=== PATIENT | female | born 1975 | race Caucasian/White ===

== ENCOUNTER 2019-01-25 22:38 | Emergency (ER) | payer BC ==
--- NOTE | 2019-01-25 23:37 | EDM.PDOC ---
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 Pt could barely talk about her losses. Was on Celexa from PCP Lala Cage 13m ago, made her tired, stopped 2m ago, changed to Buspar 10 mg BID but then had nightmares. Pt decided she would rather be tired and resumed taking the Celexa one week, says is sleeping better in the past week. She has had nightmares that include killing someone that she does not now, had a nightmare re a watch tower standing in her front yard that has people on that frighten here. She thought she saw a tower tonight even though she wasn't sleeping and thinks she is having a hallucination. 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 History: Psychiatric History: Reports: Anxiety - Past Surgical History GI Surgical History: Reports: Appendectomy Female Surgical History: Reports: Tubal Ligation Social & Family History - Tobacco Use Smoking Status *Q: Current Every Day Smoker Years of Tobacco use: 20 Packs/Tins Daily: 0.5 - Caffeine Use Caffeine Use: Reports: None - Alcohol Use Days Per Week of Alcohol Use: 7 Number of Drinks Per Day: 4 Total Drinks Per Week: 28 Date of Last Drink: 01/25/19 Time of Last Drink: 22:30 - Recreational Drug Use Recreational Drug Use: No ED ROS GENERAL - Review of Systems Review Of Systems: See Below Constitutional: Reports: Fatigue HEENT: Reports: No Symptoms Respiratory: Reports: No Symptoms Cardiovascular: Reports: No Symptoms Endocrine: Reports: No Symptoms GI/Abdominal: Reports: No Symptoms : Reports: No Symptoms Musculoskeletal: Reports: No Symptoms Skin: Reports: No Symptoms Neurological: Reports: No Symptoms Psychiatric: Reports: Anxiety, Mood Lability Hematologic/Lymphatic: Reports: No Symptoms Immunologic: Reports: No Symptoms ED EXAM, GENERAL - Physical Exam Exam: See Below Exam Limited By: No Limitations General Appearance: Alert, WD/WN, No Apparent Distress Eye Exam: Bilateral Eye: EOMI, PERRL Ears: Hearing Grossly Normal Nose: Normal Inspection, Normal Mucosa, No Blood Throat/Mouth: Normal Inspection, Normal Lips, Normal Teeth, Normal Gums, Normal Oropharynx, Normal Voice, No Airway Compromise Head: Atraumatic, Normocephalic Neck: Normal Inspection, Supple, Non-Tender, Full Range of Motion. No: Lymphadenopathy (R), Lymphadenopathy (L) Respiratory/Chest: No Respiratory Distress, Lungs Clear, Normal Breath Sounds, No Accessory Muscle Use, Chest Non-Tender Cardiovascular: Regular Rate, Rhythm, No Edema, No Gallop, No JVD, No Murmur, No Rub GI/Abdominal: Soft, Non-Tender, No Distention Back Exam: Normal Inspection Extremities: Normal Inspection, Normal Range of Motion, Non-Tender, No Pedal Edema Neurological: Alert, Oriented, CN II-XII Intact, No Motor/Sensory Deficits Psychiatric: Other (anxious, guarded, no SI/HI, limited insight, tearful at times) Skin Exam: Warm, Dry, Intact, Normal Color, No Rash Lymphatic: No Adenopathy Course - Vital Signs Last Recorded V/S: Last Vital Signs Temp 36.2 C 01/25/19 22:50 Pulse 65 01/26/19 00:10 Resp 16 01/26/19 00:10 BP 107/77 01/26/19 00:10 Pulse Ox 98 01/26/19 00:10 - Orders/Labs/Meds Orders: Active Orders 24 hr Category Date Time Status Head wo Cont [CT] Stat Exams 01/25/19 23:28 Taken ETHANOL BLOOD MEDICAL [CHEM] Stat Lab 01/26/19 00:51 Received FOLATE (FOLIC ACID), SERUM Stat Lab 01/26/19 00:51 Received THYROXINE (T4) FREE, DIRECT, S Stat Lab 01/26/19 00:51 Received VITAMIN B12 [CHEM] Stat Lab 01/26/19 00:51 Received Labs: Laboratory Tests 01/25/19 01/25/19 01/25/19 Range/Units 23:29 23:41 23:41 WBC 6.2 (4.5-12.0) X10-3/uL RBC 3.64 (3.23-5.20) x10(6)uL Hgb 13.1 (11.5-15.5) g/dL Hct 38.1 (30.0-51.3) % MCV 104.4 H (80-96) fL MCH 35.8 H (27.7-33.6) pg MCHC 34.3 (32.2-35.4) g/dL RDW 13.1 (11.5-15.5) % Plt Count 162 (125-369) X10(3)uL MPV 8.6 (7.4-10.4) fL Neut % (Auto) 50.3 (46-82) % Lymph % (Auto) 38.6 H (13-37) % [place] % (Auto) 9.0 (4-12) % Eos % (Auto) 1 (1.0-5.0) % Baso % (Auto) 1 (0-2) % Neut # (Auto) 3.0 (1.6-8.3) # Lymph # (Auto) 2.4 (0.6-5.0) # Sibley # (Auto) 0.6 (0.0-1.3) # Eos # (Auto) 0.1 (0.0-0.8) # Baso # (Auto) 0.1 (0.0-0.2) # Sodium 129 L (135-145) mmol/L Potassium 3.6 (3.5-5.3) mmol/L Chloride 90 L (100-110) mmol/L Carbon Dioxide 27 (21-32) mmol/L BUN 3 L (7-18) mg/dL Creatinine 0.6 (0.55-1.02) mg/dL Est Cr Clr Drug Dosing 115.14 mL/min Estimated GFR (MDRD) > 60 (>60) BUN/Creatinine Ratio 5.0 L (9-20) Glucose 92 (80-116) mg/dL Calcium 8.6 (8.6-10.2) mg/dL Total Bilirubin 0.3 (0.1-1.3) mg/dL AST 59 H (5-25) IU/L ALT 59 H (12-36) U/L Alkaline Phosphatase 69 (56-112) IU/L C-Reactive Protein (0.5-0.9) mg/dL Total Protein 7.0 (6.0-8.0) g/dL Albumin 3.5 (3.5-5.2) g/dL Globulin 3.5 g/dL Albumin/Globulin Ratio 1.0 TSH, Ultra Sensitive (0.36-3.74) IU/mL Urine Color Yellow (YELLOW) Urine Appearance Clear (CLEAR) Urine pH 6.0 (5.0-6.5) Ur Specific [place] 1.015 (1.010-1.025) Urine Protein Negative (NEGATIVE) mg/dL Urine Glucose (UA) Normal (NORMAL) mg/dL Urine Ketones Negative (NEGATIVE) mg/dL Urine Occult Blood Negative (NEGATIVE) Urine Nitrite Negative (NEGATIVE) Urine Bilirubin Negative (NEGATIVE) Urine Urobilinogen Normal (NEGATIVE) mg/dL Ur Leukocyte Esterase Negative (NEGATIVE) Urine RBC 0-5 (0-5) Urine WBC 0-5 (0-5) Ur Squamous Epith Cells Few H (NS,R,O) Urine Bacteria Few H (NS) Urine Mucus Few H (NS) 01/25/19 01/25/19 Range/Units 23:41 23:41 WBC (4.5-12.0) X10-3/uL RBC (3.23-5.20) x10(6)uL Hgb (11.5-15.5) g/dL Hct (30.0-51.3) % MCV (80-96) fL MCH (27.7-33.6) pg MCHC (32.2-35.4) g/dL RDW (11.5-15.5) % Plt Count (125-369) X10(3)uL MPV (7.4-10.4) fL Neut % (Auto) (46-82) % Lymph % (Auto) (13-37) % [place] % (Auto) (4-12) % Eos % (Auto) (1.0-5.0) % Baso % (Auto) (0-2) % Neut # (Auto) (1.6-8.3) # Lymph # (Auto) (0.6-5.0) # S[place]y # (Auto) (0.0-1.3) # Eos # (Auto) (0.0-0.8) # Baso # (Auto) (0.0-0.2) # Sodium (135-145) mmol/L Potassium (3.5-5.3) mmol/L Chloride (100-110) mmol/L Carbon Dioxide (21-32) mmol/L BUN (7-18) mg/dL Creatinine (0.55-1.02) mg/dL Est Cr Clr Drug Dosing mL/min Estimated GFR (MDRD) (>60) BUN/Creatinine Ratio (9-20) Glucose (80-116) mg/dL Calcium (8.6-10.2) mg/dL Total Bilirubin (0.1-1.3) mg/dL AST (5-25) IU/L ALT (12-36) U/L Alkaline Phosphatase (56-112) IU/L C-Reactive Protein < 0.2 L (0.5-0.9) mg/dL Total Protein (6.0-8.0) g/dL Albumin (3.5-5.2) g/dL Globulin g/dL Albumin/Globulin Ratio TSH, Ultra Sensitive 4.20 H (0.36-3.74) IU/mL Urine Color (YELLOW) Urine Appearance (CLEAR) Urine pH (5.0-6.5) Ur Specific [place] (1.010-1.025) Urine Protein (NEGATIVE) mg/dL Urine Glucose (UA) (NORMAL) mg/dL Urine Ketones (NEGATIVE) mg/dL Urine Occult Blood (NEGATIVE) Urine Nitrite (NEGATIVE) Urine Bilirubin (NEGATIVE) Urine Urobilinogen (NEGATIVE) mg/dL Ur Leukocyte Esterase (NEGATIVE) Urine RBC (0-5) Urine WBC (0-5) Ur Squamous Epith Cells (NS,R,O) Urine Bacteria (NS) Urine Mucus (NS) - Re-Assessments/Exams Free Text/Narrative Re-Assessment/Exam: 01/26/19 01:[address] neg, labs d/w as pt was sound asleep, agrees that she has an alcohol program, he is supportive of her entering an inpatient program altho states that she will not agree to do so will have pt f/u with PCP is aware that pt can contact an inpt program directly at any time to arrange an admission (in coordination with PCP) Departure - Departure Time of Disposition: 01:08 Disposition: Home, Self-Care 01 Condition: Fair Clinical Impression: Chronic anxiety, Agoraphobia, Grief reaction, Sleep disturbance, Nightmares, Alcohol abuse, Macrocytosis, Elevated liver function tests, Hyponatremia - Discharge Information *PRESCRIPTION DRUG MONITORING PROGRAM REVIEWED*: Not Applicable *COPY OF PRESCRIPTION DRUG MONITORING REPORT IN PATIENT LYLY: Not Applicable Instructions: Generalized Anxiety Disorder, Adult, Complicated Grieving, Alcohol Use Disorder Referrals: Lala Cage PA [Primary Care Provider] - Forms: ED Department Discharge Additional Instructions: You have a mood disorder (generalized anxiety disorder, agoraphobia, grief reaction) as well as a substance abuse disorder (alcoholism). Your blood work shows several manifestations of injury from alcohol: macrocytosis, hyponatremia, elevated liver enzymes consistent with alcoholic hepatitis, low blood urea nitrogen. As your body is not able to handle the stress it is under, you would do well to consider entering an inpatient treatment program such as [facility] or [facility]. Lala Cage can help arrange an admission. Several additional tests are pending, including a thiamine and vitamin B12 level , which often are low and can affect your thinking. Contact Lala today for her recommendations. Return to Emergency Department at any time if you are feeling worse. - My Orders Last 24 Hours: My Active Orders 01/25/19 23:28 Head wo Cont [CT] Stat 01/26/19 00:51 ETHANOL BLOOD MEDICAL [CHEM] Stat FOLATE (FOLIC ACID), SERUM Stat THYROXINE (T4) FREE, DIRECT, S Stat VITAMIN B12 [CHEM] Stat - Assessment/Plan Last 24 Hours: My Active Orders 01/25/19 23:28 Head wo Cont [CT] Stat 01/26/19 00:51 ETHANOL BLOOD MEDICAL [CHEM] Stat FOLATE (FOLIC ACID), SERUM Stat THYROXINE (T4) FREE, DIRECT, S Stat VITAMIN B12 [CHEM] Stat
== END 2019-01-26 01:28 | disposition home or self-care (01) ==
LOC: FB.ED 22:38
DX: F43.22 Adjustment disorder with anxiety (principal); F51.5 Nightmare disorder; E87.1 Hypo-osmolality and hyponatremia; F40.00 Agoraphobia, unspecified; F10.10 Alcohol abuse, uncomplicated; R79.89 Other specified abnormal findings of blood chemistry; D75.89 Other specified diseases of blood and blood-forming organs; K21.9 Gastro-esophageal reflux disease without esophagitis; Z90.49 Acquired absence of other specified parts of digestive tract; Z79.899 Other long term (current) drug therapy
CPT/HCPCS: 36415; 70450; 80053; 81001; 82607; 82746; 84439; 84443; 85025; 86140; 99285-25; G0480

== ENCOUNTER 2021-09-14 01:41 | Emergency (ER) | payer BC ==
[2021-09-14] MEDS ORDERED: Lidocaine 2% 20 ML MDV INFILT ONE (01:42)
== END 2021-09-14 02:45 | disposition home or self-care (01) ==
LOC: FB.ED 01:41
DX: S01.81XA Laceration without foreign body of other part of head, initial encounter (principal); I10 Essential (primary) hypertension; K21.9 Gastro-esophageal reflux disease without esophagitis; Z72.0 Tobacco use; Z79.899 Other long term (current) drug therapy; W18.09XA Striking against other object with subsequent fall, initial encounter
CPT/HCPCS: 12011; 99281; 99282-25

== ENCOUNTER 2022-11-03 20:30 | Emergency (ER) | payer BC ==
[2022-11-03] MEDS ORDERED: Sodium Chloride 0.9% 1,000 ML IV ONE (20:36)
[2022-11-03] MEDS ORDERED: Sodium Chloride 0.9% 10 ML Syringe FLUSH PRN (20:36)
[2022-11-03 21:00] LABS: BASOPHILS ABSOLUTE AUTO 0.1 x10-3/uL (0.0-0.1); BASOPHILS PERCENT AUTO 1.4 % (0.2-1.5); BLOOD UREA NITROGEN,BUN 7 mg/dL (7-18); BUN/CREATININE RATIO 8.8 (9-20); CALCIUM 8.5 mg/dL (8.6-10.2); CARBON DIOXIDE,CO2 25 mmol/L (21-32); CHLORIDE,CL 101 mmol/L (100-110); CREATININE 0.8 mg/dL (0.55-1.02); EOSINOPHILS ABSOLUTE AUTO 0.1 x10-3/uL (0.0-0.8); EOSINOPHILS PERCENT AUTO 1.4 % (0.6-8.1); ESTIMATED GFR 90 mL/min (>60); GLUCOSE RANDOM 116 mg/dL (80-116); HEMATOCRIT 37.9 % (34.2-48.2); HEMOGLOBIN 13.1 g/dL (11.4-15.5); LYMPHOCYTES ABSOLUTE AUTO 1.4 x10-3/uL (1.0-4.4); LYMPHOCYTES PERCENT AUTO 30.6 % (18.4-52.1); MEAN CORPUSCULAR HEMOGLOBIN 37.3 pg (23.9-33.9); MEAN CORPUSCULAR HGB CONC 34.6 g/dL (31.9-34.8); MEAN CORPUSCULAR VOLUME 107.6 fL (76.7-100.5); MEAN PLATELET VOLUME 7.7 fL (7.1-12.4); MONOCYTES ABSOLUTE AUTO 0.7 x10-3/uL (0.3-1.0); MONOCYTES PERCENT AUTO 15.6 % (4.4-15.7); NEUTROPHILS ABSOLUTE AUTO 2.4 x10-3/uL (1.5-6.3); PLATELET COUNT,PLT 123 x10(3)uL (151-488); POTASSIUM,K 3.3 mmol/L (3.5-5.3); RED BLOOD CELL COUNT 3.52 x10(6)uL (3.60-5.20); RED CELL DISTRIBUTION WIDTH 13.6 % (12.3-16.5); SODIUM,NA 140 mmol/L (135-145); WHITE BLOOD CELL COUNT,WBC 4.7 x10-3/uL (3.0-10.3)
[2022-11-03 21:03] LABS: SALICYLATE 3.6 mg/dL (<2.8)
[2022-11-03 21:10] LABS: A/G RATIO 0.9; ACETAMINOPHEN < 2 ug/mL (<2); ALANINE AMINOTRANSFERASE,ALT 80 U/L (12-36); ALBUMIN 3.6 g/dL (3.5-5.2); ALKALINE PHOSPHATASE 82 IU/L (56-112); BILIRUBIN TOTAL 0.2 mg/dL (0.1-1.3); PROTEIN TOTAL,TP 7.5 g/dL (6.0-8.0)
[2022-11-03 21:14] LABS: HCG QUANTITATIVE < 5 mIU/mL (<5); TSH ULTRASENSITIVE 2.55 IU/mL (0.36-3.74)
[2022-11-03 21:16] LABS: ASPARTATE AMNIOTRANSFERASE,AST 172 IU/L (5-25)
[2022-11-03 21:17] LABS: ETHANOL BLOOD MEDICAL 0.41 % (<0.03)
== END 2022-11-03 22:34 | disposition home or self-care (01) ==
LOC: FB.ED 20:30
DX: F10.10 Alcohol abuse, uncomplicated (principal); F41.9 Anxiety disorder, unspecified; I10 Essential (primary) hypertension; K21.9 Gastro-esophageal reflux disease without esophagitis; Z79.899 Other long term (current) drug therapy
CPT/HCPCS: 36415; 80053; 80143; 80179; 80307; 84443; 84702; 85025; 96360; 99284; J7030

== ENCOUNTER 2024-03-30 18:55 | Emergency (ER) | payer SELFPAY ==
[2024-03-30 19:20] LABS: BASOPHILS ABSOLUTE AUTO 0.1 x10-3/uL (0.0-0.1); BASOPHILS PERCENT AUTO 1.2 % (0.2-1.5); EOSINOPHILS ABSOLUTE AUTO 0.1 x10-3/uL (0.0-0.8); EOSINOPHILS PERCENT AUTO 2.3 % (0.6-8.1); HEMATOCRIT 37.8 % (34.2-48.2); LYMPHOCYTES ABSOLUTE AUTO 2.1 x10-3/uL (1.0-4.4); LYMPHOCYTES PERCENT AUTO 46.6 % (18.4-52.1); MEAN CORPUSCULAR HGB CONC 34.3 g/dL (31.9-34.8); MEAN CORPUSCULAR VOLUME 107.8 fL (76.7-100.5); MEAN PLATELET VOLUME 7.9 fL (7.1-12.4); MONOCYTES ABSOLUTE AUTO 0.6 x10-3/uL (0.3-1.0); MONOCYTES PERCENT AUTO 13.7 % (4.4-15.7); NEUTROPHILS ABSOLUTE AUTO 1.6 x10-3/uL (1.5-6.3); NEUTROPHILS PERCENT AUTO 36.2 % (30.8-76.2); PLATELET COUNT,PLT 180 x10(3)uL (151-488); WHITE BLOOD CELL COUNT,WBC 4.5 x10-3/uL (3.0-10.3)
[2024-03-30 19:25] LABS: CALCIUM 8.8 mg/dL (8.6-10.2); CARBON DIOXIDE,CO2 34 mmol/L (21-32); CHLORIDE,CL 103 mmol/L (100-110); CREATININE 0.7 mg/dL (0.55-1.02); ESTIMATED GFR 105 mL/min (>60); GLUCOSE RANDOM 128 mg/dL (80-116); POTASSIUM,K 3.5 mmol/L (3.5-5.3); SODIUM,NA 146 mmol/L (135-145)
[2024-03-30 19:28] LABS: BLOOD UREA NITROGEN,BUN < 5 mg/dL (7-18); BUN/CREATININE RATIO 7.1 (9-20)
[2024-03-30 19:37] LABS: A/G RATIO 0.9; ALANINE AMINOTRANSFERASE,ALT 101 U/L (12-36); ALBUMIN 3.7 g/dL (3.5-5.2); ALKALINE PHOSPHATASE 154 IU/L (56-112); BILIRUBIN TOTAL 0.2 mg/dL (0.1-1.3); SALICYLATE 3.7 mg/dL (<2.8)
[2024-03-30 19:38] LABS: TSH ULTRASENSITIVE 1.9 IU/mL (0.36-3.74)
[2024-03-30 19:41] LABS: ACETAMINOPHEN < 2 ug/mL (<2); ASPARTATE AMNIOTRANSFERASE,AST 196 IU/L (5-25)
[2024-03-30 19:42] LABS: ETHANOL BLOOD MEDICAL 0.43 % (<0.03)
[2024-03-30] MEDS ORDERED: Sodium Chloride 0.9% 1,000 ML IV SCH (19:45)
[2024-03-30] MEDS: LORazepam 2 MG/ML SDV IM ONE (20:15)
[2024-03-30 20:44] LABS: AMPHETAMINES SCREEN, URINE NEGATIVE (NEGATIVE); BARBITURATE SCREEN,URINE NEGATIVE (NEGATIVE); BENZODIAZEPINES SCREEN,URINE POSITIVE (NEGATIVE); METHADONE SCREEN, URINE NEGATIVE (NEGATIVE); METHAMPHETAMINE SCREEN, URINE NEGATIVE (NEGATIVE); OXYCODONE SCREEN,URINE NEGATIVE (NEGATIVE); THC SCREEN,URINE NEGATIVE (NEGATIVE)
[2024-03-30 20:45] LABS: BUPRENORPHINE SCREEN,URINE NEGATIVE (NEGATIVE)
== END 2024-03-30 20:55 ==
LOC: FB.ED 18:55
DX: R45.851 Suicidal ideations (principal); F41.9 Anxiety disorder, unspecified; F10.129 Alcohol abuse with intoxication, unspecified; I10 Essential (primary) hypertension; K21.9 Gastro-esophageal reflux disease without esophagitis; Z90.49 Acquired absence of other specified parts of digestive tract; Z79.899 Other long term (current) drug therapy
CPT/HCPCS: 36415; 80053; 80143; 80179; 80307; 81025; 84443; 85025; 96372; 99285; J2060